=== PATIENT | female | born 1980 | race Caucasian/White ===

== ENCOUNTER 2017-06-15 10:27 | Day surgery (SDC) | payer BC ==
[~2017-06-15 10:27] MED LIST: Lactated Ringers 1,000 ML IV SCH; Lidocaine 1%/Sod Bicarbonate in NS 8.4% 1 ML Syringe IDERM PRN; Sodium Chloride 0.9% 10 ML Syringe FLUSH PRN
[2017-06-15] MEDS ORDERED: EPINEPHrine 1 MG/ML SDV ONE (10:35)
[2017-06-15] MEDS ORDERED: Ropivacaine 0.5% 5 MG/ML 30 ML SDV ONE (10:35)
[2017-06-15] MEDS ORDERED: Albuterol 0.083% 2.5 MG/3 ML Neb Soln NEB ONE (11:25)
--- NOTE | 2017-06-15 12:11 | PCM.PREANE ---
Preanesthetic Assessment - Anesthesia/Transfusion/Family Hx Anesthesia History: Prior Anesthesia Without Reaction Family History of Anesthesia Reaction: No - Review of Systems General: No Symptoms Pulmonary: No Symptoms Cardiovascular: No Symptoms Gastrointestinal: No Symptoms Neurological: Other (Numbness in her hands at times.) Other: Reports: Diabetes (Type one. Since age 12) - Physical Assessment NPO Status Date: 06/15/17 NPO Status Time: 03:30 (Bite of chocolate) Vital Signs: Last Vital Signs Temp Pulse Resp BP Pulse Ox 98 06/15/17 11:31 Weight: 64 kg ASA Class: 2 Mental Status: Alert & Oriented x3 Airway Class: Mallampati = 1 Dentition: Reports: Normal Dentition Thyro-Mental Finger Breadths: 3 Mouth Opening Finger Breadths: 3 ROM/Head Extension: Full Lungs: Clear to Auscultation, Normal Respiratory Effort Cardiovascular: Regular Rate, Regular Rhythm - Lab Values: Laboratory Last Values MRSA (PCR) Negative 06/02/17 10:33 - Allergies Allergies/Adverse Reactions: Allergies Allergy/AdvReac Type Severity Reaction Status Date / Time acetaminophen [From Tylenol] Allergy Cannot Verified 06/14/17 16:26 Remember antihistamines Allergy Cannot Uncoded 06/14/17 16:26 Remember - Acknowledgements Anesthesia Type Planned: General Anesthesia Pt an Appropriate Candidate for the Planned Anesthesia: Yes Alternatives and Risks of Anesthesia Discussed w Pt/Guardian: Yes Pt/Guardian Understands and Agrees with Anesthesia Plan: Yes PreAnesthesia Questionnaire HEENT History: Reports: Impaired Vision, Other (See Below) Other HEENT History: horizontal nystagmus, visual disturbances, wears glasses Cardiovascular History: Reports: None Respiratory History: Reports: None Gastrointestinal History: Reports: None Genitourinary History: Reports: Chronic Renal Insuffiency BILLING AND INSURANCE COORDINATOR History: Reports: None Musculoskeletal History: Reports: Other (See Below) Other Musculoskeletal History: bilateral radicular arm pain Neurological History: Reports: Other (See Below) Other Neuro History: dizziness Psychiatric History: Reports: Anxiety, Depression, Other (See Below) Other Psychiatric History: insomnia Endocrine/Metabolic History: Reports: Diabetes, Type I Hematologic History: Reports: None Immunologic History: Reports: None Oncologic (Cancer) History: Reports: None Dermatologic History: Reports: None - Past Surgical History Head Surgeries/Procedures: Reports: None Cardiovascular Surgical History: Reports: None Respiratory Surgical History: Reports: None GI Surgical History: Reports: None Female Surgical History: Reports: None Male Surgical History: Reports: None Endocrine Surgical History: Reports: None Neurological Surgical History: Reports: None Oncologic Surgical History: Reports: None Dermatological Surgical History: Reports: None - SUBSTANCE USE Smoking Status *Q: Current Every Day Smoker Recreational Drug Use History: No - HOME MEDS Home Medications: Home Meds Enalapril Maleate 1.25 mg PO DAILY 06/14/17 [History] Escitalopram Oxalate 20 mg PO DAILY 06/14/17 [History] Insulin Aspart [NovoLOG] 1 dose SQ ASDIRECTED 06/14/17 [History] Norethindrone-Ethinyl Estrad [Dasetta 1-35-28 Tablet] 1 tab PO DAILY 06/14/17 [ History] Zolpidem Tartrate [Ambien] 0.5 - 1 tab PO BEDTIME PRN 06/14/17 [History] Cyclobenzaprine [Flexeril] 10 mg PO Q8H PRN #40 tab 06/15/17 [Rx] oxyCODONE 5 - 10 mg PO Q6H PRN #30 tablet 06/15/17 [Rx] - CURRENT (IN HOUSE) MEDS Current Meds: Current Medications Epinephrine HCl (Adrenalin) 3 mg IV ONETIME ONE Stop: 06/15/17 13:31 Lactated Ringer's (Ringers, Lactated) 1,000 mls @ 125 mls/hr IV ASDIRECTED MICHELLE Stop: 06/15/17 23:00 Lidocaine/Sodium Bicarbonate (Buffered Lidocaine 1% In Ns 8.4%) 0.25 ml IDERM ONETIME PRN PRN Reason: Prior to IV Start Stop: 06/15/17 18:00 Sodium Chloride (Saline Flush) 10 ml FLUSH ASDIRECTED PRN PRN Reason: Keep Vein Open Stop: 06/15/17 18:00 Discontinued Medications Albuterol (Proventil Neb Soln) 2.5 mg NEB ONETIME ONE Stop: 06/15/17 11:26 Last Admin: 06/15/17 11:34 Dose: 2.5 mg Epinephrine HCl (Adrenalin) Confirm Administered Dose 1 mg .ROUTE .STK-MED ONE Stop: 06/15/17 10:36 Ropivacaine (Naropin 0.5%) Confirm Administered Dose 30 ml .ROUTE .STK-MED ONE Stop: 06/15/17 10:36
[2017-06-15] MEDS ORDERED: fentaNYL 100 MCG/2 ML SDV ONE (12:25)
[2017-06-15] MEDS ORDERED: Propofol 200 MG/20 ML SDV ONE (12:25)
[2017-06-15] MEDS ORDERED: Ondansetron 4 MG/2 ML SDV ONE (12:25)
[2017-06-15] MEDS ORDERED: Rocuronium 50 MG/5 ML Vial ONE (12:25)
[2017-06-15] MEDS ORDERED: Midazolam 1 MG/ML 2 ML SDV ONE (12:25)
[2017-06-15] MEDS ORDERED: Lidocaine 1% 6 ML ONE (12:26)
[2017-06-15] MEDS ORDERED: Bupivacaine 0.25% 10 ML SDV ONE (12:44)
[2017-06-15] MEDS ORDERED: EPINEPHrine 1 MG/ML 30 ML MDV IV ONE (13:30)
[2017-06-15] MEDS ORDERED: fentaNYL 250 MCG/5 ML SDV ONE (13:59)
[2017-06-15] MEDS ORDERED: fentaNYL 100 MCG/2 ML SDV IVPUSH PRN (14:43)
--- NOTE | 2017-06-15 14:45 | PCM48HPAN ---
Post Anesthesia Note - EVALUATION WITHIN 48HRS OF ANESTHETIC Vital Signs in Normal Range: Yes Patient Participated in Evaluation: Yes Respiratory Function Stable: Yes Airway Patent: Yes Cardiovascular Function Stable: Yes Hydration Status Stable: Yes Pain Control Satisfactory: Yes Nausea and Vomiting Control Satisfactory: Yes Mental Status Recovered: Yes Pulse Rate: 115 SaO2: 100 Resp Rate: 18 Temperature: 36.7 C Blood Pressure: 139/77 - COMMENTS/OBSERVATIONS Free Text/Narrative:: no anesthesia complications noted
--- NOTE | 2017-06-15 14:53 | PCM.SN ---
- Free Text/Narrative Note: Note: 06/15/2017 1449 121/64 88 99% 20 Surgeon and pt request post-op pain control for left shoulder surgery risk of block failure, facial numbness, site infection, and chronic pain discussed with pt and agreed to proceed. All standard monitors est. EKG, BP, Pulse Ox, 2L O2 and 2ml versed, 2ml fentanyl pre-op dx. left shoulder pain post-op dx left shoulder video arthroscopy pt for interscalene block placement all standard monitors est. pt ID time out performed IV sedation 2ml versed, 2ml fentanyl, 2L NC O2, sterile prep and drape of left neck and shoulder U/S placed with visualization of brachial plexus from clavicle to cricoid local skin infiltration 22ga. Stimplex A insulated needle visualized at brachial plexus nerve stimulator at .9 Amy Amps stop at .4 Amy Amps with good bicep twitch with 1ml NaCl and lose of twitch neg aspirations every 5ml of 0.5% ropivacaine and 1:200,000 epi total of 30ml injected all done with U/S guidance needle withdrawn no complications noted pt tolerated procedure well block settling in start procedure at 1238 end procedure at 1254 122/66 97 100% 14
--- NOTE | 2017-06-15 15:17 | PCM48HPAN ---
Post Anesthesia Note - EVALUATION WITHIN 48HRS OF ANESTHETIC Vital Signs in Normal Range: Yes Patient Participated in Evaluation: Yes Respiratory Function Stable: Yes Airway Patent: Yes Cardiovascular Function Stable: Yes Hydration Status Stable: Yes Pain Control Satisfactory: Yes Nausea and Vomiting Control Satisfactory: Yes Mental Status Recovered: Yes Pulse Rate: 94 SaO2: 100 Resp Rate: 15 Temperature: 36.7 C Blood Pressure: 124/74 - COMMENTS/OBSERVATIONS Free Text/Narrative:: no anesthesia complications noted
--- NOTE | 2017-06-21 12:54 | PCM.OPNOTE ---
- General Post-Op/Procedure Note Date of Surgery/Procedure: 06/15/17 Operative Procedure(s): left shoulder video arthroscopy with subacromial decompression and extensive debridement and biceps tenodesis Pre Op Diagnosis: left shoulder impingement Post-Op Diagnosis: same with biceps tendinopathy Anesthesia Technique: General ET Tube, Regional Block Primary Surgeon: Richar Ruiz Anesthesia Provider: Nilson Mendieta Credit Collection Specialist: Cat Newsome EBL in mLs: 5 Complications: None Condition: Good
--- NOTE | 2017-06-21 14:03 | OR ---
DATE OF OPERATION: 06/15/2017 SURGEON: Richar Ruiz MD OPERATION PERFORMED: Left shoulder video arthroscopy with subacromial decompression, extensive debridement, biceps tenodesis. PREOPERATIVE DIAGNOSIS: Left shoulder impingement. POSTOPERATIVE DIAGNOSIS: Left shoulder impingement with biceps tendinopathy. ANESTHESIA: General endotracheal intubation with regional interscalene block. ANESTHESIA PROVIDER: Nilson Mendieta CRNA. COUNTY PROGRAM TECHNICIAN: Cat Newsome PA-C. ESTIMATED BLOOD LOSS: 5 mL. COMPLICATIONS: None. CONDITION: Stable. DESCRIPTION OF PROCEDURE: The patient was identified in the preoperative holding area. Proper site was marked and identified by the surgeon. The patient was taken back to the operating theater, where after adequate anesthesia, the patient was placed in a lazy right lateral decubitus position. A wedge was placed posteriorly. All bony prominences were well padded. The left upper extremity was then sterilely prepped and draped in the usual sterile fashion. OR-wide time-out was performed. The patient received 2 grams of IV Ancef. At this time, 12 pounds of traction was applied to the left upper extremity. Standard posterior incision was made. The scope trocar was introduced into the glenohumeral joint. With the use of a spinal needle, anterior portal was then also created. Cursory examination showed no chondromalacia. There was no undersurface rotator cuff tear. No loose or foreign bodies in the axillary recess. The biceps tendon showed significant fraying as well as erythema noted throughout its insertional region. At this time, it was decided that a biceps tenodesis would be performed with use of a spinal needle. A #2 FiberWire was passed through the biceps tendon, through the rotator interval, and then a biceps tenotomy was performed for later tenodesis in the rotator interval. At this time, scope trocar was removed and placed in the subacromial space. The patient was noted to have significant subacromial bursitis. At this time, a lateral portal was also created and a large amount of resection and extensive debridement was done of the subacromial bursa and synovitis. At this time, once this was able to be seen, the rotator cuff was found to be intact. The undersurface of the acromion was then prepared and was found to be a type 2/3 acromion. With the use of a 4- 0 full-radius bur, acromioplasty was performed to make it smooth with the posterior border of the acromion and make it a type-1 acromion. All excess bone fragments as well as any remaining synovitis were then resected out of the subacromial space. At this time, it was found to be adequately debrided with an extensive debridement as well as an acromioplasty was performed. Next, the 2 limbs of the FiberWire were found anteriorly and a biceps tenodesis was performed in the subacromial space in the rotator interval. At this time, excess saline was drained from the shoulder. 3-0 nylon simple suture was used for closure of the skin. The patient was placed in a pillow sling and sent to the PACU in a stable condition. BARTOLO /[id number]
== END 2017-06-15 16:50 | disposition home or self-care (01) ==
LOC: JD.SDS 10:27
PROVIDERS: ATTEND Orthopaedic Surgery
DX: M75.42 Impingement syndrome of left shoulder (principal); M75.22 Bicipital tendinitis, left shoulder; E10.22 Type 1 diabetes mellitus with diabetic chronic kidney disease; N18.2 Chronic kidney disease, stage 2 (mild); F41.9 Anxiety disorder, unspecified; F32.9 Major depressive disorder, single episode, unspecified; Z79.899 Other long term (current) drug therapy; F17.210 Nicotine dependence, cigarettes, uncomplicated; Z96.41 Presence of insulin pump (external) (internal); Z88.8 Allergy status to other drugs, medicaments and biological substances
CPT/HCPCS: 29823; 29826; 29828; 81025; 82962; 87641; 94640; C1713; J0171; J2250; J2405; J2795; J3010; J7120; 01630; 64415; J2704

== ENCOUNTER 2019-03-06 09:19 | Day surgery (SDC) | payer BC ==
[~2019-03-06 09:19] MED LIST changes: +EPINEPHrine 1 MG/1 ML Amp SCH; +EPINEPHrine 1 MG/ML 30 ML MDV IRR SCH; -Lactated Ringers 1,000 ML IV SCH
[2019-03-06] MEDS: Lactated Ringers 1,000 ML IV SCH ×2 (09:53→13:58)
--- NOTE | 2019-03-06 10:13 | PCM.PREANE ---
Preanesthetic Assessment - Procedure Proposed Procedure: Right shoulder video arthroscopy - Anesthesia/Transfusion/Family Hx Anesthesia History: Prior Anesthesia Without Reaction Family History of Anesthesia Reaction: No Transfusion History: No Prior Transfusion(s) - Review of Systems General: No Symptoms Pulmonary: No Symptoms Cardiovascular: No Symptoms Gastrointestinal: No Symptoms Neurological: No Symptoms Other: Reports: Diabetes (BS 238 at 0953), Anxiety - Physical Assessment NPO Status Date: 03/05/19 NPO Status Time: 00:00 Height: 1.63 m Weight: 65 kg ASA Class: 2 Mental Status: Alert & Oriented x3 Airway Class: Mallampati = 1 Dentition: Reports: [place](s), Missing Tooth/Teeth (missing crowns on bottom both sides) Thyro-Mental Finger Breadths: 3 Mouth Opening Finger Breadths: 3 ROM/Head Extension: Full Lungs: Clear to Auscultation, Normal Respiratory Effort Cardiovascular: Regular Rate, Regular Rhythm - Lab Values: Laboratory Last Values POC Glucose 238 mg/dL (70-105) H 03/06/19 09:53 Urine HCG, Qual Negative (NEGATIVE) 03/06/19 09:32 MRSA (PCR) Negative 02/27/19 11:21 - Allergies Allergies/Adverse Reactions: Allergies Allergy/AdvReac Type Severity Reaction Status Date / Time No Known Allergies Allergy Verified 03/05/19 12:57 - Blood Blood Available: No Product(s) Available: None - Anesthesia Plan Pre-Op Medication Ordered: None - Acknowledgements Anesthesia Type Planned: General Anesthesia, Regional Block (right interscalene block for post-op pain control) Pt an Appropriate Candidate for the Planned Anesthesia: Yes Alternatives and Risks of Anesthesia Discussed w Pt/Guardian: Yes Pt/Guardian Understands and Agrees with Anesthesia Plan: Yes PreAnesthesia Questionnaire HEENT History: Reports: Impaired Vision, Other (See Below) Other HEENT History: horizontal nystagmus, visual disturbances, wears glasses Cardiovascular History: Reports: None Respiratory History: Reports: None Gastrointestinal History: Reports: None Genitourinary History: Reports: Chronic Renal Insuffiency PLUGGER History: Reports: None Musculoskeletal History: Reports: Other (See Below) Other Musculoskeletal History: bilateral radicular arm pain Neurological History: Reports: Other (See Below) Other Neuro History: dizziness Psychiatric History: Reports: Anxiety, Depression, Other (See Below) Other Psychiatric History: insomnia Endocrine/Metabolic History: Reports: Diabetes, Type I Hematologic History: Reports: None Immunologic History: Reports: None Oncologic (Cancer) History: Reports: None Dermatologic History: Reports: None - Past Surgical History Head Surgeries/Procedures: Reports: None Cardiovascular Surgical History: Reports: None Respiratory Surgical History: Reports: None GI Surgical History: Reports: None Female Surgical History: Reports: None Male Surgical History: Reports: None Endocrine Surgical History: Reports: None Neurological Surgical History: Reports: None Musculoskeletal Surgical History: Reports: Shoulder Surgery Oncologic Surgical History: Reports: None Dermatological Surgical History: Reports: None - SUBSTANCE USE Smoking Status *Q: Current Every Day Smoker Tobacco Use Within Last Twelve Months: Cigarettes Second Hand Smoke Exposure: Yes Days Per Week of Alcohol Use: 0 Number of Drinks Per Day: 0 Total Drinks Per Week: 0 Recreational Drug Use History: No - HOME MEDS Home Medications: Home Meds Enalapril Maleate 1.25 mg PO DAILY 06/14/17 [History] Escitalopram Oxalate 20 mg PO DAILY 06/14/17 [History] Insulin Aspart [NovoLOG] 1 dose SQ ASDIRECTED 06/14/17 [History] Norethindrone-Ethinyl Estrad [Dasetta 1-35-28 Tablet] 1 tab PO DAILY 06/14/17 [ History] Zolpidem Tartrate [Ambien] 5 - 10 mg PO BEDTIME PRN 06/14/17 [History] Cyclobenzaprine HCl 5 mg PO BID PRN #20 tablet 03/06/19 [Rx] oxyCODONE 5 - 10 mg PO Q6H PRN #6 tab 03/06/19 [Rx] - CURRENT (IN HOUSE) MEDS Current Meds: Current Medications Epinephrine HCl (Adrenalin) 3 mg .XX ONETIME MICHELLE Stop: 03/06/19 15:00 Lactated Ringer's (Ringers, Lactated) 1,000 mls @ 125 mls/hr IV ASDIRECTED MICHELLE Stop: 03/06/19 23:00 Lidocaine/Sodium Bicarbonate (Buffered Lidocaine 1% In Ns 8.4%) 0.25 ml IDERM ONETIME PRN PRN Reason: Prior to IV Start Stop: 03/06/19 18:00 Sodium Chloride (Saline Flush) 10 ml FLUSH ASDIRECTED PRN PRN Reason: Keep Vein Open Stop: 03/06/19 18:00
[2019-03-06] MEDS ORDERED: Ropivacaine 0.5% 5 MG/ML 30 ML SDV ONE (10:24)
[2019-03-06] MEDS ORDERED: fentaNYL 100 MCG/2 ML SDV ONE ×4 (10:25→15:05)
[2019-03-06] MEDS ORDERED: Midazolam 1 MG/ML 2 ML SDV ONE ×2 (10:26→13:52)
[2019-03-06] MEDS ORDERED: Lidocaine 1% 2 ML ONE (10:26)
--- NOTE | 2019-03-06 11:05 | PCM.SN ---
- Free Text/Narrative Note: Anesthesia Note: (Right Interscalene Block Note) Date: 03/06/2019 Time Out: 1037 Start: 1037 Stop: 1052 Surgical Procedure: Right SVA with biceps tenodesis VS. tenotomy Current Procedure: Right interscalene block under US guidance for postoperative pain control requested by Dr. Ruiz. Patient chart reviewed, risk/benefits discussed with patient, consent obtained. Patient positioned supine, monitors/alarms on, oxygen placed via nasal cannula at 2 LPM. IV sedation administered: Versed 2mg IV, Fentanyl 100mcg IV given prior to block placement. Right shoulder prepped with two chloropreps. Sterile drapes placed with aseptic technique noted. Under US guidance, right subclavian artery visualized along with the right brachial plexus. Plexus followed up to C6 cricoid level, and area localized with 2mls of 1% lidocaine. 22gauge 2 inch stimiplex needle advanced under US with 0.8mV with stimulation of biceps noted. Good stimulation noted with decreased voltage and absent at 0.38mVs. 1ml of Normal Saline injected with loss of stimulation noted to confirm needle not placed intraneurally. Incremental dosing of 5mls with negative aspiration noted prior to each injection of 0.5% ropivacaine with 1:200,000 epinephrine. Total volume=30mls. Please refer to nurses noted for vital signs. Nilson Mendieta CRNA
[2019-03-06] MEDS ORDERED: Lactated Ringers 1,000 ML ONE (11:27)
[2019-03-06] MEDS ORDERED: Dexamethasone 4 MG/ML 5 ML MDV ONE (11:27)
[2019-03-06] MEDS ORDERED: ceFAZolin 1 GM Vial ONE (11:27)
[2019-03-06] MEDS ORDERED: Ondansetron 4 MG/2 ML SDV ONE (11:27)
[2019-03-06] MEDS ORDERED: Propofol 200 MG/20 ML SDV ONE (11:27)
[2019-03-06] MEDS ORDERED: Lidocaine 1% 4 ML ONE (11:28)
[2019-03-06] MEDS ORDERED: Rocuronium 50 MG/5 ML Vial ONE (12:09)
[2019-03-06] MEDS ORDERED: Bupivacaine 0.25% 10 ML SDV ONE (15:16)
[2019-03-06] MEDS ORDERED: oxyCODONE 5 MG Tab PO PRN (15:39)
--- NOTE | 2019-03-06 15:40 | PCM.POSTAN ---
POST ANESTHESIA ASSESSMENT - MENTAL STATUS Mental Status: Alert, Oriented - VITAL SIGNS Vital Signs: Last Vital Signs Temp 36.8 C 03/06/19 09:35 Pulse 86 03/06/19 09:35 Resp 16 03/06/19 09:35 BP 113/66 03/06/19 09:35 Pulse Ox 98 03/06/19 09:35 - RESPIRATORY Respiratory Status: Respiratory Rate WNL, Airway Patent, O2 Saturation Stable - CARDIOVASCULAR CV Status: Pulse Rate WNL, Blood Pressure Stable - GASTROINTESTINAL GI Status: No Symptoms - PAIN Pain Score: 4 - POST OP HYDRATION Hydration Status: Adequate & Stable
[2019-03-06] MEDS ORDERED: HYDROmorphone 0.5 MG/0.5 ML Syringe IVPUSH PRN (15:41)
[2019-03-06] MEDS ORDERED: Ondansetron 4 MG/2 ML SDV IVPUSH PRN (15:41)
[2019-03-06] MEDS ORDERED: fentaNYL 100 MCG/2 ML SDV IVPUSH PRN (15:41)
--- NOTE | 2019-03-06 15:48 | PCM48HPAN ---
Post Anesthesia Note - EVALUATION WITHIN 48HRS OF ANESTHETIC Vital Signs in Normal Range: Yes Patient Participated in Evaluation: Yes Respiratory Function Stable: Yes Airway Patent: Yes Cardiovascular Function Stable: Yes Hydration Status Stable: Yes Pain Control Satisfactory: Yes (received additional IV meds) Nausea and Vomiting Control Satisfactory: Yes Mental Status Recovered: Yes Vital Signs: Last Vital Signs Temp 36.8 C 03/06/19 09:35 Pulse 86 03/06/19 09:35 Resp 16 03/06/19 09:35 BP 113/66 03/06/19 09:35 Pulse Ox 98 03/06/19 09:35
--- NOTE | 2019-03-12 14:19 | PCM.OPNOTE ---
- General Post-Op/Procedure Note Date of Surgery/Procedure: 03/06/19 Operative Procedure(s): right shoulder video arthroscopy with biceps tenotomy, extensive debridement, and subacromial decompression Pre Op Diagnosis: right shoulder pain with biceps teninopathy and impingement Post-Op Diagnosis: Same Anesthesia Technique: General ET Tube, Regional Block Primary Surgeon: Richar Ruiz Anesthesia Provider: Nilson Mendieta Data Warehousing Manager: Cat Newsome EBL in mLs: 5 Complications: None Condition: Good
--- NOTE | 2019-03-12 16:47 | OR ---
DATE OF OPERATION: 03/06/2019 SURGEON: Richar Ruiz MD OPERATION PERFORMED: Right shoulder video arthroscopy with biceps tenotomy, extensive debridement, and subacromial decompression. PREOPERATIVE DIAGNOSIS: Right shoulder pain with biceps tendinopathy and impingement. POSTOPERATIVE DIAGNOSIS: Right shoulder pain with biceps tendinopathy and impingement. ANESTHESIA: General endotracheal intubation with regional interscalene block. ANESTHESIA PROVIDER: Nilson Mendieta CRNA. SCIENCE FACULTY MEMBER: Cat Newsome PA-C. ESTIMATED BLOOD LOSS: 5 mL. COMPLICATIONS: None. CONDITION: Stable. DESCRIPTION OF PROCEDURE: The patient was identified in the preop holding area. Proper site was marked and identified by the surgeon. The patient was taken back to the operating theater, where after adequate anesthesia, the patient was placed in a lazy left lateral decubitus position. A wedge was placed posteriorly. All bony prominences were well padded. The patient was secured to table. Right upper extremity was then sterilely prepped and draped in the usual sterile fashion. OR-wide time-out was performed. The patient received 2 g IV Ancef and 10 pounds of traction was applied to the right upper extremity. Standard posterior incision was made and scope trocar was introduced into the glenohumeral joint. With the use of a spinal needle from an outside-in technique, anterior portal was created. The patient was noted to have severe erythema noted in the bicipital groove as well as attachment of the biceps with significant thickening of the attachment of the biceps to the superior labrum. There was no unstable labral tear noted. The subscapularis tendon was intact. The undersurface of the rotator cuff showed no signs of erythema and was intact. At this time, a biceps tenotomy was performed and it was lodged in the groove and found to have good shortening. The labrum did have significant fraying as well as erythema, and there was significant synovitis near the superior labrum. At this time, this was debrided. The patient had no chondromalacia noted. No loose or foreign bodies. At this time, attention was turned to the subacromial space. The anterior and posterior portals were placed in the subacromial space and a lateral portal was then created as well. The patient was noted to have a large amount of bursal fluid as well as erythema in the subacromial space. A subacromial decompression as well as a bursectomy were performed of the subacromial space with an extensive debridement. At this time, a 4-0 full- radius elvin was used for an acromioplasty bringing it back to a smooth border with posterior rim. The patient's rotator cuff was otherwise intact, showing a minor amount of fraying, but no full-thickness tears were noted. At this time, excess saline was drained from the shoulder. The patient had 3-0 nylon simple suture used for closure of the portal incisions. The patient was placed in a sterile soft dressing and a pillow sling, and sent to PACU in stable condition. MMODAL /[id number]
== END 2019-03-06 17:15 | disposition home or self-care (01) ==
LOC: JD.SDS 09:19
PROVIDERS: ATTEND Orthopaedic Surgery
DX: M75.41 Impingement syndrome of right shoulder (principal); M65.811 Other synovitis and tenosynovitis, right shoulder; M67.813 Other specified disorders of tendon, right shoulder; E10.22 Type 1 diabetes mellitus with diabetic chronic kidney disease; N18.2 Chronic kidney disease, stage 2 (mild); F41.9 Anxiety disorder, unspecified; F17.200 Nicotine dependence, unspecified, uncomplicated; F32.9 Major depressive disorder, single episode, unspecified; G89.18 Other acute postprocedural pain; N63.21 Unspecified lump in the left breast, upper outer quadrant; Z79.899 Other long term (current) drug therapy
CPT/HCPCS: 29823; 29826; 64415; 81025; 82962; 87641; A9270; J0171; J0690; J1170; J2001; J2250; J2405; J2704; J2795; J3010; J3490; J7120; 01630; J1100

== ENCOUNTER 2021-05-27 13:01 | Day surgery (SDC) | payer BC ==
[~2021-05-27 13:01] MED LIST changes: +Bupivacaine 0.25% 10 ML SDV ONE; -EPINEPHrine 1 MG/1 ML Amp SCH; -EPINEPHrine 1 MG/ML 30 ML MDV IRR SCH; +Lactated Ringers 1,000 ML IV SCH; +Lidocaine 1% 30 ML SDV ONE; +Lidocaine 1% 4 ML ONE; +Midazolam 1 MG/ML 2 ML SDV ONE; +Propofol 200 MG/20 ML SDV ONE; +Sodium Chloride 0.9% 10 ML Syringe FLUSH SCH; +ceFAZolin 1 GM Vial ONE; +fentaNYL 100 MCG/2 ML SDV ONE
[2021-05-27] MEDS ORDERED: Propofol 200 MG/20 ML SDV ONE (13:24)
[2021-05-27] MEDS ORDERED: Ondansetron 4 MG/2 ML SDV ONE (13:43)
[2021-05-27] MEDS ORDERED: Ketorolac 30 MG/ML SDV ONE (13:43)
== END 2021-05-27 14:35 | disposition home or self-care (01) ==
LOC: JD.SDS 13:01
PROVIDERS: ATTEND Orthopaedic Surgery
DX: M65.841 Other synovitis and tenosynovitis, right hand (principal); M65.311 Trigger thumb, right thumb; M65.341 Trigger finger, right ring finger; N18.2 Chronic kidney disease, stage 2 (mild); E10.22 Type 1 diabetes mellitus with diabetic chronic kidney disease; Z79.899 Other long term (current) drug therapy; Z98.890 Other specified postprocedural states; F17.210 Nicotine dependence, cigarettes, uncomplicated
CPT/HCPCS: 26055; J0690; J1885; J2250; J2405; J2704; J3010; J3490; J7120; 01810